=== PATIENT | male | born 1960 | race Caucasian/White ===

== ENCOUNTER 2018-07-25 10:51 | Emergency (ER) | payer MEDICAID ==
[~2018-07-25] VITALS: Ht 180.3 cm; Wt 77.0 kg
[~2018-07-25 10:51] MED LIST: ASPIRIN 325MG EC TABLET PO SCH
[2018-07-25 12:21] LABS: BASOPHILS % 0.4 % (0.0-2.0); EOSINOPHILS % 1.1 % (0.0-5.0); HEMATOCRIT. 48.2 % (42.0-52.0); HEMOGLOBIN. 16.4 g/dL (14.0-18.0); LYMPHOCYTES % 20.3 % (20.0-50.0); MEAN CORPUSCULAR HEMOGLOBIN 31.9 pg (28.0-32.0); MEAN CORPUSCULAR VOLUME 93.4 fL (80.0-94.0); MEAN PLATELET VOLUME 8.3 fl (7.4-10.4); NEUTROPHILS % 71.2 % (40.0-76.0); PLATELET 183 x1000/uL (130-400); RED BLOOD CELL COUNT 5.16 mill/uL (4.7-6.1)
[2018-07-25 12:24] LABS: CHLORIDE 107 mEq/L (98-107)
[2018-07-25] MEDS: MORPHINE SULFATE 4 MG/ML CPJ (NOT FOR IM USE) IV STA (12:26)
[2018-07-25] MEDS: ONDANSETRON HCL 4MG/2ML INJ IV ONE (12:26)
[2018-07-25] MEDS ORDERED: CLONIDINE 0.1MG TABLET PO PRN (15:45)
[2018-07-25] MEDS ORDERED: LOSARTAN POTASSIUM 25 MG TABLET PO SCH (15:45)
[2018-07-25] MEDS ORDERED: REGADENOSON 0.4 MG/5 ML IV ONE (15:45)
[2018-07-25 17:00] VITALS: BP 118/82
== END 2018-07-25 17:44 | disposition left against medical advice (07) ==
LOC: ER 11:43 → EDBEDREQ 13:48 → ER 17:44 → CANBEDREQ 17:59
DX: R07.89 Other chest pain (principal); R06.02 Shortness of breath; I10 Essential (primary) hypertension; Z98.890 Other specified postprocedural states
CPT/HCPCS: 36415; 71045; 80053; 83880; 84484; 85025; 93005; 99284; Z7610